=== PATIENT | female | born 1965 | race African-American/Black ===

== ENCOUNTER 2016-04-30 12:44 | Emergency (ER) | payer MEDICARE, MEDICAID ==
[~2016-04-30] VITALS: Ht 165.1 cm; Wt 105.0 kg
[2016-04-30 12:53] VITALS: BP 151/111; PULSE 79; RESP 16; TEMP 98.1; O2SAT 97
[2016-04-30] MEDS ORDERED: AMIT1TAB79 PO (13:09)
[2016-04-30] MEDS ORDERED: DIAZ10TA PO (13:09)
[2016-04-30] MEDS ORDERED: TYLETAB34 PO (13:09)
[2016-04-30] MEDS ORDERED: HYDR-3366 PO (13:09)
[2016-04-30] MEDS ORDERED: HYDR25TA5 PO (13:09)
[2016-04-30] MEDS ORDERED: LOSA100T PO (13:09)
[2016-04-30] MEDS ORDERED: HYDROmorphone HCL PF 1 MG/ML VIAL SQ ONE (13:15)
[2016-04-30] MEDS ORDERED: LIDOCAINE HCL 1% 50 ML VIAL INFIL ONE (13:15)
[2016-04-30] MEDS ORDERED: VENTAER INH (13:24)
[2016-04-30] MEDS ORDERED: ADVA45AE INH (13:24)
[2016-04-30] MEDS ORDERED: TETANUS/DIPHTHERIA TOXOID ADULT 0.5 ML VIAL IM ONE (13:45)
[2016-04-30 13:51] VITALS: BP 147/87; PULSE 72; RESP 18; O2SAT 100
--- NOTE | 2016-04-30 14:09 | RADHPO ---
EXAM DATE/TIME: 04/30/2016 13:52 [place] COMPARISON: No previous studies available for comparison. INDICATIONS : Puncture wound from wood right foot MEDICAL HISTORY : None. SURGICAL HISTORY : None. ENCOUNTER: Initial ACUITY: 1 day PAIN SCORE: 6/10 LOCATION: Right foot FINDINGS: Three view examination of the right foot demonstrates soft tissue swelling without dislocation, or fr acture. The tarsal bones appear intact. The interphalangeal and metatarsophalangeal joints are int act. The calcaneus is intact. Bony mineralization is normal. CONCLUSION: Soft tissue without fracture or foreign body. Madhu Duran MD on April 30, 2016 at 14:07 Board Certified Radiologist. This report was verified electronically.
[2016-04-30] MEDS ORDERED: CEPH-460 PO (14:21)
[2016-04-30] MEDS ORDERED: HYDR-3533 PO (14:21)
--- NOTE | 2016-04-30 14:21 | PD ---
HPI Chief Complaint: Laceration/Skin Injury Time Seen by Provider: 13:09 Travel History International Travel<30 days: No Contact w/Intl Traveler<30days: No Traveled to known affect area: No History of Present Illness HPI So 50 year-old woman presents to the emergency department [place] with a small piece of wood. She stridor over the home was unable to. She feels otherwise well. No other complaints. This happened earlier today. Pain is moderately severe, nonradiating, in the right foot, constant since onset. History Past Medical History Medical History: Denies Significant Hx Tetanus Vaccination: < 5 Years Influenza Vaccination: Yes Social History Alcohol Use: Yes (OCC) Tobacco Use: No Allergies-Medications (Allergen,Severity, Reaction): Coded Allergies: No Known Allergies (Unverified , 04/30/16) Reported Meds & Prescriptions Reported Meds & Active Scripts Active Reported Ventolin Hfa 18 GM Inh (Albuterol Sulfate) 90 Mcg/Act Aer 2 Puff INH Q4-6H PRN Advair Hfa 12 GM Inh (Fluticasone-Salmeterol 12 GM Inh) 45-21 Mcg/Act Aer 1 Puff INH DAILY Diazepam 10 Mg Tab 10 Mg PO HS Elavil (Amitriptyline HCl) 25 Mg Tab 1 Tab PO DAILY Tylenol-Codeine #3 (Acetaminophen-Codeine) 300-30 mg Tab 1 Tab PO TID PRN [place] (Hydrocodone-Acetaminophen) 10-325 Mg Tab 1 Tab PO TID PRN Hydrochlorothiazide 25 Mg Tab 25 Mg PO DAILY Losartan (Losartan Potassium) 100 Mg Tab 100 Mg PO DAILY Review of Systems Except as stated in HPI: all other systems reviewed are Neg Physical Exam Narrative GENERAL: Well-appearing 50 year-old woman, no acute distress. SKIN: Warm and dry. CARDIOVASCULAR: Warm and well perfused. RESPIRATORY: Normal rate and effort. MUSCULOSKELETAL: Right foot has a about 1 cm piece of wood protruding out of the ball of the right foot anteriorly from the base of the MCP joint. The entire ball of the foot overlying MCP joint is exquisitely tender, and somewhat swollen. No erythema or redness. NEUROLOGICAL: Awake and alert. No gross deficits. Data Data Last Documented VS Vital Signs Date Time Temp Pulse Resp B/P Pulse Ox O2 Delivery O2 Flow Rate FiO2 04/30/16 13:51 72 18 147/87 100 Room Air 04/30/16 12:53 98.1 Orders Hydromorphone Pf Inj (Dilaudid Pf Inj) (04/30/16 13:15) Lidocaine 1% Inj (50 Ml) (Xylocaine 1% I (04/30/16 13:15) Ed Poc Ultrasound (04/30/16 ) Tetanus/Diphtheria Tox Adult (Tetanus/Di (04/30/16 13:45) Foot, Complete ([id number]) (04/30/16 ) MDM Medical Decision Making Medical Screen Exam Complete: Yes Emergency Medical Condition: Yes Differential Diagnosis Foreign body, risk for infection, bony injury, other Narrative Course Medical decision making 50 year-old woman impaled by a small piece of wood [place]. Area was cleansed, anesthetized, foreign body removed removed, then irrigated. She'll be placed on prophylactic antibiotics. Tetanus updated. Procedures Procedure Narrative Point of care ultrasound: Focused soft tissue ultrasound performed before and after removal of the foreign body appears to show complete removal without retained foreign body. Foreign body removal: Area was prepped with iodine. It was anesthetized with 1% lidocaine, 5 mL's. Foreign body was removed with the para 4 sepsis under direct visualization. There is no obvious break or evidence of retained foreign body. It was then irrigated with sterile saline and had a sterile bandage placed. Diagnosis Primary Impression: Puncture wound of right foot Qualified Code: S91.331A - Puncture wound of right foot, initial encounter Additional Impression: Foreign body (FB) in soft tissue Additional Instructions: Take antibiotics as prescribed. Follow-up with your primary doctor in the next 5-7 days ago not completely well. Return to the emergency department for any worsening pain redness swelling drainage or any other new or worsening symptoms. Med/Other Pt SpecificInfo: Prescription(s) given Scripts Cephalexin (Keflex)500 Mg Nda717 Mg PO Q8H #15 CAP Ref 0 Prov:Jose Fischer MD 04/30/16 Hydrocodone-Acetaminophen (Lortab)5-325 Mg Tab1-2 Tab PO Q6H PRN (PAIN) #12 TAB Prov:Jose Fischer MD 04/30/16 Disposition: 01 DISCHARGE HOME Condition: Stable Jose Fischer MD Apr 30, 2016 14:21
== END 2016-04-30 14:47 | disposition home or self-care (01) ==
LOC: PHED 12:44
DX: S91.321A Laceration with foreign body, right foot, initial encounter (principal); Z23 Encounter for immunization; W45.8XXA Other foreign body or object entering through skin, initial encounter; Y93.02 Activity, running; Y99.8 Other external cause status
CPT/HCPCS: 28190; 73630; 90471; 90714; 96372; 99283; J1170